=== PATIENT | female | born 1950 | race Caucasian/White ===

== ENCOUNTER → 2017-05-12 | Outpatient (CLI) | payer OTHER ==
--- NOTE | 2017-05-12 16:03 | XR ---
EXAMINATION TYPE: XR chest 2V DATE OF EXAM: 05/12/2017 COMPARISON: None HISTORY: 66-year-old female presurgical evaluation for cervical fusion, unspecified abdominal pain TECHNIQUE: Frontal and lateral views FINDINGS: The cardiomediastinal silhouette, aorta, and pulmonary vasculature are within normal limits. Strandy atelectasis mid and lower lungs. Otherwise, lungs and pleural spaces are clear. IMPRESSION: No acute cardiopulmonary process.
[2017-05-12 17:50] LABS: Appearance,Urine Clear (Clear); Bacteria,Urine Rare /hpf; Bilirubin,Urine Negative (Negative); Blood,Urine Negative (Negative); Color,Urine Yellow; Glucose,Urine (UA) Negative (Negative); Hyaline Casts,Urine 1 /lpf (0-2); Ketones,Urine Negative (Negative); Leukocyte Esterase,Urine Trace (Negative); Mucus,Urine Rare /hpf; Nitrite,Urine Negative (Negative); PH, Urine 6.5 (5.0-8.0); Protein,Urine Negative (Negative); RBC,Urine 1 /hpf (0-5); Specific Gravity,Urine 1.016 (1.001-1.035); Squamous Epithelial Cell,Urine <1 /hpf (0-4); Urobilinogen,Urine <2.0 mg/dL (<2.0); WBC,Urine 12 /hpf (0-5)
== END | disposition home or self-care (01) ==
LOC: LABPAT 15:08
PROVIDERS: ATTEND Orthopaedic Surgery Orthopaedic Surgery of the Spine
DX: Z01.818 Encounter for other preprocedural examination (principal); M48.02 Spinal stenosis, cervical region; Z01.812 Encounter for preprocedural laboratory examination
CPT/HCPCS: 71046; 81001

== ENCOUNTER → 2017-05-13 | Outpatient (CLI) | payer OTHER ==
[2017-05-13 13:55] LABS: Basophils # (A) 0.1 k/uL (0-0.2); Basophils % (A) 1 %; Eosinophils # (A) 0.1 k/uL (0-0.7); Eosinophils % (A) 1 %; HCT 43.6 % (34.0-46.0); HGB 13.8 gm/dL (11.4-16.0); Lymphocytes # (A) 2.5 k/uL (1.0-4.8); Lymphocytes % (A) 25 %; MCH 27.9 pg (25.0-35.0); MCHC 31.7 g/dL (31.0-37.0); MCV 87.9 fL (80.0-100.0); Mean Platelet Volume 8.6; Monocytes # (A) 0.5 k/uL (0-1.0); Monocytes % (A) 5 %; Neutrophils # (A) 6.6 k/uL (1.3-7.7); Neutrophils % (A) 65 %; Platelet Count 282 k/uL (150-450); RBC 4.96 m/uL (3.80-5.40); RDW 14.7 % (11.5-15.5); WBC 10.1 k/uL (3.8-10.6)
[2017-05-13 14:05] LABS: Anion Gap 12 mmol/L; Blood Urea Nitrogen 33 mg/dL (7-17); Calcium 10.4 mg/dL (8.4-10.2); Carbon Dioxide 29 mmol/L (22-30); Chloride 101 mmol/L (98-107); Glucose 98 mg/dL (74-99); Potassium 4.3 mmol/L (3.5-5.1); Sodium 142 mmol/L (137-145)
[2017-05-13 14:10] LABS: Partial Thromboplastin Time 22.3 sec (22.0-30.0); Prothrombin Time 9.5 sec (9.0-12.0)
== END | disposition home or self-care (01) ==
LOC: LABPAT 13:24
PROVIDERS: ATTEND Orthopaedic Surgery Orthopaedic Surgery of the Spine
DX: Z01.812 Encounter for preprocedural laboratory examination (principal); M48.02 Spinal stenosis, cervical region
CPT/HCPCS: 80048; 85025; 85610; 85730

== ENCOUNTER 2017-05-25 09:17 | Inpatient (IN) | payer OTHER ==
[2017-05-19 09:22] VITALS: BMI 32.2
[~2017-05-25 09:17] MED LIST: BACITRACIN 50,000 UNIT, POLYMYXIN B 500,000 UNIT in SODIUM CHLORIDE 0.9% IRRIGATIO 1,00... IRRIGATION ONE; DEXAMETHASONE SOD PHOSPHATE 10 MG/ML 1 ML VIAL IV ONE; LACTATED RINGERS 1,000 ML IV SCH; MIDAZOLAM 2 MG/2 ML VIAL IV PRN; ONDANSETRON 4 MG/2 ML VIAL IVP ONE; ceFAZolin IN SWFI 2 GM/20 ML SYRINGE IVP ONE
[2017-05-25] MEDS ORDERED: LIDOCAINE 1% 20 ML VIAL (10MG/ML) FOR IV START IV ONE (09:41)
[2017-05-25] MEDS ORDERED: LIDOCAINE 1% INJ 10MG/ML (20 ML MDV) ONE (10:56)
[2017-05-25] MEDS ORDERED: NEOSTIGMINE 1 MG/ML 10 ML VIAL ONE (10:56)
[2017-05-25] MEDS ORDERED: PROPOFOL 10 MG/ML 20 ML VIAL IV ONE (10:56)
[2017-05-25] MEDS ORDERED: MIDAZOLAM 2 MG/2 ML VIAL ONE (10:56)
[2017-05-25] MEDS ORDERED: SUCCINYLCHOLINE CHLORIDE 100 MG/5 ML SYR IV ONE (10:56)
[2017-05-25] MEDS ORDERED: ALBUTEROL INHALER 60 PUFF/8 GM INHALER INHALATION ONE (10:56)
[2017-05-25] MEDS ORDERED: DEXAMETHASONE SOD PHOS (MDV) 100 MG/10 ML VIAL ONE (10:56)
[2017-05-25] MEDS ORDERED: GLYCOPYRROLATE 0.2 MG/ML 2 ML VIAL ONE (10:56)
[2017-05-25] MEDS ORDERED: fentaNYL (PF) 50 MCG/ML 2 ML AMP ONE (10:56)
[2017-05-25] MEDS ORDERED: ROCURONIUM BROMIDE 10 MG/ML 10 ML VIAL IV ONE (10:56)
[2017-05-25] MEDS ORDERED: SODIUM CHLORIDE 0.9% 50 ML with ceFAZolin 2,000 MG IV ONE ×2 (11:07)
[2017-05-25] MEDS ORDERED: GELATIN SPONGE,ABSORB (LARGE) 1 EACH SPONGE MISCELLANE ONE (11:31)
[2017-05-25] MEDS ORDERED: LIDOCAINE 0.5% (PF) 5 MG/ML (50 ML SDV) SQ ONE (11:31)
[2017-05-25] MEDS ORDERED: THROMBIN (BOVINE) 5,000 UNIT VIAL MISCELLANE ONE (11:32)
[2017-05-25] MEDS ORDERED: LACTATED RINGERS 1,000 ML IV ONE (12:41)
[2017-05-25] MEDS ORDERED: MAGNESIUM HYDROXIDE 2,400 MG/10 ML CUP PO PRN (13:00)
[2017-05-25] MEDS ORDERED: ACETAMINOPHEN TAB 325 MG TAB PO PRN (13:00)
[2017-05-25] MEDS ORDERED: DIAZEPAM 5 MG TAB PO PRN (13:00)
[2017-05-25] MEDS ORDERED: BENZOCAINE/MENTHOL LOZENG 1 EACH LOZENGE MUCOUS MEM PRN (13:00)
[2017-05-25] MEDS ORDERED: ONDANSETRON 4 MG/2 ML VIAL IVP PRN (13:00)
[2017-05-25] MEDS ORDERED: ALBUTEROL NEBULIZED 2.5 MG/3 ML INHALATION PRN (13:02)
[2017-05-25] MEDS ORDERED: ACETAMINOPHEN TAB 500 MG TAB PO PRN (13:02)
--- NOTE | 2017-05-25 13:09 | P.OP ---
Date of Procedure: 05/25/17 Preoperative Diagnosis: Cervical stenosis C4 5 C5 6 C6 7 Herniated nucleus pulposis C4 5 C5 6 C6 7 Degenerative disc disease Upper extremity radiculopathy Neck pain Postoperative Diagnosis: Same Anesthesia: GETA Pathology: none sent Condition: stable Disposition: PACU Description of Procedure: BRIEF OPERATIVE NOTE Preoperative Diagnosis: Cervical stenosis C4 5 C5 6 C6 7, herniated nucleus pulposis C4 5 C5 6 C6 7, degenerative disc disease, neck pain with upper extremity radiculopathy Postoperative Diagnosis: Same Procedure: Anterior cervical decompression with discectomy and fusion C4 5 C5 6 C6 7 Placement of interbody graft C4 5 C5 6 C6 7 Application of anterior cervical plate C4 5 6 7 Surgeon: Dr. Montana Cable Splicer Helper: Trenton CALDWELL who is present throughout the entire the case persistence during positioning, dissection, exposure, visualization, and all crucial elements of the case as well as closure. Anesthesia: General anesthesia per Dr. Wagner Estimated blood loss: Approximately 75 mL Complications: None apparent Components implanted: K2 mL [place] anterior cervical plate system with 8 screws and Vikos interbody allograft bone graft Disposition: To recovery room in good stable condition. OPERATIVE INDICATIONS The patient has had long-standing issues in their neck and upper extremities. She is found have severe stenosis at her cervical spine with disc herniations at C4 5 C5 6 and C6 7. Her imaging correlated well with her neck and upper extremity symptoms. The patient has been through conservative treatment. She is not having any prolonged benefit despite aggressive conservative treatment and is having worsening of her symptoms. We discussed various treatment options including surgery, and the patient wishes to proceed with surgery We discussed the risk, patient's alternatives and benefits of surgery including but not limited to, risk of bleeding risk of infection, risk of need for further surgery, risk of decreased, loss of motion, muscle function, malunion nonunion, hardware failure, nerve damage, paralysis, heart attack, and . OPERATIVE SUMMARY After discussing all the risks, patient alternatives and benefits at length, the patient elected to proceed with surgical intervention, signed informed consent, and presented for their procedure. The patient was seen and examined in the preoperative holding area and the surgical site was marked. The patient was given antibiotics and brought to the operating room. The patient was positioned on the operating room table in a supine position being careful to pad any bony prominences and pressure points. The patient was sedated and intubated by anesthesia in standard fashion. Once the airway and C- spine were stabilized the patient's arms were padded and tucked at her side, with her shoulders gently taped. The head was placed in a donut pad with the neck in good neutral alignment and position. We were careful to maintain the patient's cervical spine and good neutral alignment and position throughout. The patient was prepped and draped in a normal standard fashion. An appropriate timeout and keystone protocol performed. We were able to proceed with the surgery. The local wound area was infiltrated with local anesthetic. An incision was made transversely approximately 2-1/2 cm over the appropriate levels at C 56. Dissection was taken down subcutaneously to the level of the platysma which was split in line with its fibers. Dissection was taken with a carotid approach, with the trachea and esophagus medial and the carotid sheath laterally. We dissected down to the anterior surface of the vertebral bodies at C4 5 C5 6 and C6 7. Large osteophytes were noted at C45 and C5 6 Intraoperative x-ray was taken which showed a marker at the appropriate level at C4 5. With the appropriate level positively confirmed, we were able to proceed with discectomy at the appropriate levels. All of the operative levels were exposed appropriately. We started C4 5 and then worked to C5 6 and then C6 7. The patient had all their twitches back, and there was no evidence of recurrent laryngeal issue. The wound was copiously irrigated and suctioned dry as had been done periodically throughout the case. At the appropriate level/ levels, I established an annulotomy with an 11 blade scalpel. A discectomy was performed with a combination of pituitary rongeurs, curettes, a high-speed bur, and Kerrison rongeurs. Note was made of significant posterior osteophytes and significant herniation particular at C4 5 and C5 6 and moderately at C6 7. These were remedied with the decompression. The posterior longitudinal ligament was taken down as were any posterior osteophytes. This gave good central and bilateral foraminal decompression. There is no evidence of any dural tear or leak. The endplates were prepared with a high-speed bur. With the endplates in good parallel position, I was able to size for the appropriate size interbody graft. The wound was irrigated and suctioned dry the graft was prepared and malleted into position. It had good alignment and position with the anterior surface flush with the anterior surface of the vertebral bodies. This was done similarly the appropriate levels starting at C4 5 and then at C5 6 and then at C6 7. With the grafts intact, I was able to measure and contour and appropriate sized plate. The plate was positioned at the midline over the appropriate levels from C4 to 7. Screw holes were established with a hand drill and drill guide. Screws were placed in good alignment and position with excellent bony purchase. They were seated under the locking device. The construct was checked and found to be stable. Intraoperative x-ray was taken which showed good alignment and position of the implants at the appropriate levels. There was no evidence of any dural tear or leak. Good hemostasis was maintained. The wound was copiously irrigated and suctioned dry as had been done periodically throughout the case. The platysma was closed with absorbable suture. The subcutaneous tissue was closed. The subcuticular tissue was closed with absorbable suture. The wound was cleaned and dried and dressed appropriately. A soft cervical collar was placed appropriately. The patient was woken up by anesthesia, extubated, transferred back gently to their hospital bed and brought to the recovery room in good stable condition. The patient will be admitted to the hospital for appropriate postoperative care , medical management and monitoring. We will continue to follow them closely about the postoperative course.
[2017-05-25] MEDS: HYDROmorphone 0.5 MG/0.5 ML SYRINGE IVP PRN ×4 (13:27→13:57)
--- NOTE | 2017-05-25 13:52 | XR ---
EXAMINATION TYPE: XR cervical spine 1V DATE OF EXAM: 05/25/2017 COMPARISON: NONE HISTORY: 66 year-old female needle placement. TECHNIQUE: Portable crosstable lateral intraoperative view FINDINGS: Surgical instrument and needle project anteriorly at the C4-C5 disc interspace. There is grade 1 ante rolisthesis noted here. Patient is intubated. IMPRESSION: Intraoperative assessment with needle anteriorly at C4-C5.
--- NOTE | 2017-05-25 15:12 | XR ---
EXAMINATION TYPE: XR cervical spine 1V DATE OF EXAM: 05/25/2017 COMPARISON: Earlier today HISTORY: 66-year-old female intraoperative assessment of hardware placement TECHNIQUE: Portable intraoperative crosstable lateral view FINDINGS: Patient is intubated. ACDF hardware placed from C4 through C7 levels. IMPRESSION: Placement of C4-C7 ACDF.
[2017-05-25] MEDS: ceFAZolin IN SWFI 2 GM/20 ML SYRINGE IVP SCH ×2 (17:41→23:21)
[2017-05-25] MEDS: SODIUM CHLORIDE 0.9% 1,000 ML IV SCH (17:41)
[2017-05-25] MEDS: HYDROmorphone 2 MG/ML 1 ML SYRINGE IVP PRN ×2 (17:48→23:04)
[2017-05-25] MEDS: traMADol 50 MG TAB PO PRN (20:21)
[2017-05-25] MEDS ORDERED: MONTELUKAST 10 MG TAB PO SCH (21:00)
[2017-05-25] MEDS ORDERED: [UNRECOGNIZED DRUG - OTHER] EA NOSTRIL SCH (21:00)
[2017-05-25] MEDS ORDERED: AEROSPAN INHALATION SCH (22:49)
[2017-05-26 03:33] VITALS: BP 114/63; PULSE 75; RESP 17; TEMP 97.8
[2017-05-26] MEDS: SODIUM CHLORIDE 0.9% 1,000 ML IV SCH (04:57)
[2017-05-26] MEDS: traMADol 50 MG TAB PO PRN (05:57)
[2017-05-26] MEDS ORDERED: PANTOPRAZOLE 40 MG TABLET PO SCH (07:30)
--- NOTE | 2017-05-26 08:09 | P.DS ---
Providers Date of admission: 05/25/17 09:17 Attending physician: Ramone Montana [facility] Course: The patient presented on the day of admission as per her operative note. She feels her arms have made good progress but she is having some pain at her throat and at the base of her neck posteriorly. This being controlled with oral medications. Physical Exam The incision site is clean dry and intact. There is no erythema no drainage. There is no purulence no evidence of infection.Her neck is soft and supple. There is no drainage or sooner and swelling. Abdomen soft and nontender. Chest has good excursion with deep inspiration and expiration. The patient has active and passive range of motion intact at the upper and lower extremities. There is no acute change in neurologic status.she has good strength in bilateral upper extremities. Hospital Course postoperative day 1 status post anterior cervical discectomy and fusion at C4 5 C5 6 C6 7 for herniated nucleus pulposis and stenosis with upper extremity radiculopathy. The patient has been making good progress postoperatively. She is having good improvement in her upper extremity symptoms but is having some pain around the surgical site which is to be expected.They have completed the prophylactic antibiotics without any signs or symptoms of infection. The patient has been able to advance their diet, and is tolerating diet adequately. The pain was initially controlled with IV medications and is now controlled appropriately with oral medications. The patient has been able to increase their mobilization. The patient has progressed appropriatelyand I think her pain will improve over the next several days around the surgical site. she has some ALLERGIES with medications but has been able take Ultram and may do well with Valium as well and we'll send her home with these. I think they are in good stable condition for discharge today. They will be sent home with appropriate prescriptions. I answered their questions to the best of my ability in a language that they can understand and they are agreeable with the plan. They will follow up as directed in approximately 2 weeks or sooner if any problems. Patient Condition at Discharge: Good Plan - Discharge Summary Discharge Rx Participant: No New Discharge Prescriptions: New Diazepam [Valium] 5 mg PO TID PRN #90 tab PRN Reason: Spasms traMADol HCL [Ultram] 50 mg PO Q6HR PRN #90 tab PRN Reason: Pain No Action Loratadine [Claritin] 10 mg PO DAILY amLODIPine BESYLATE [Norvasc] 10 mg PO DAILY Triamterene/Hydrochlorothiazid [Triamterene-Hctz 37.5-25 mg Tb] 1 tab PO DAILY Omeprazole [PriLOSEC] 40 mg PO AC-BRKFST Albuterol Sulfate [Proair Hfa] 2 puff INHALATION RT-Q6H PRN PRN Reason: asthma Cholecalciferol [Vitamin D3] 1,000 unit PO DAILY Pravastatin Sodium [Pravachol] 40 mg PO DAILY Montelukast [Singulair] 10 mg PO HS Acetaminophen Tab [Tylenol Tab] 1,000 mg PO Q6HR PRN PRN Reason: Pain Fluticasone Nasal [place] [Flonase Nasal [place]] 2 spr EA NOSTRIL BID Vitafusion Complete 1 tab PO DAILY Niacin 500 mg PO DAILY Ibuprofen 400 mg PO Q4H PRN PRN Reason: Pain Fish Oil/Dha/Epa [Fish Oil 1,200 mg Fish Oil] 1 cap PO DAILY Biotin 10,000 mcg PO DAILY Aerostan Nasal [place] 2 spray EA NOSTRIL BID Discharge Medication List Albuterol Sulfate [Proair Hfa] 2 puff INHALATION RT-Q6H PRN 09/21/13 [History] Loratadine [Claritin] 10 mg PO DAILY 09/21/13 [History] Omeprazole [PriLOSEC] 40 mg PO AC-BRKFST 09/21/13 [History] Triamterene/Hydrochlorothiazid [Triamterene-Hctz 37.5-25 mg Tb] 1 tab PO DAILY 09/21/13 [History] amLODIPine BESYLATE [Norvasc] 10 mg PO DAILY 09/21/13 [History] Acetaminophen Tab [Tylenol Tab] 1,000 mg PO Q6HR PRN 05/19/17 [History] Aerostan Nasal [place] 2 spray EA NOSTRIL BID 05/19/17 [History] Biotin 10,000 mcg PO DAILY 05/19/17 [History] Cholecalciferol [Vitamin D3] 1,000 unit PO DAILY 05/19/17 [History] Fish Oil/Dha/Epa [Fish Oil 1,200 mg Fish Oil] 1 cap PO DAILY 05/19/17 [History] Fluticasone Nasal [place] [Flonase Nasal [place]] 2 spr EA NOSTRIL BID 05/19/17 [ History] Ibuprofen 400 mg PO Q4H PRN 05/19/17 [History] Montelukast [Singulair] 10 mg PO HS 05/19/17 [History] Niacin 500 mg PO DAILY 05/19/17 [History] Pravastatin Sodium [Pravachol] 40 mg PO DAILY 05/19/17 [History] Vitafusion Complete 1 tab PO DAILY 05/19/17 [History] Diazepam [Valium] 5 mg PO TID PRN #90 tab 05/26/17 [Rx] traMADol HCL [Ultram] 50 mg PO Q6HR PRN #90 tab 05/26/17 [Rx] Follow up Appointment(s)/Referral(s): Ramone Montana DO [Doctor of Osteopathic Medicine] - 2 Weeks Activity/Diet/Wound Care/Special Instructions: Keep site clean. May shower with waterproof Tegaderm intact. Do not soak in a tub. After Tuesday May remove dressing and then may shower with area uncovered, But leave Steri-Strips intact and allow them to fray off on their own. May use soft cervical collar for comfort. May remove for several hours at a time for comfort and while in bed for comfort if she wishes Avoid heavy or rigorous activity. No lifting greater than 20 pounds. No overhead activities. No repetitive bending stooping or twisting.
[2017-05-26] MEDS ORDERED: amLODIPine 10 MG TAB PO SCH (09:00)
[2017-05-26] MEDS ORDERED: PRAVASTATIN SODIUM 40 MG TAB PO SCH (09:00)
[2017-05-26] MEDS ORDERED: SENNOSIDES-DOCUSATE SODIUM 1 EACH TAB PO SCH (09:00)
[2017-05-26] MEDS ORDERED: LORATADINE 10 MG TAB PO SCH (09:00)
[2017-05-26] MEDS ORDERED: NIACIN TR 250 MG CAPSULE.ER PO SCH (09:00)
[2017-05-26] MEDS ORDERED: NON-FORMULARY DRUG (Fish Oil/Dha/Epa [Fish Oil 1,200 Mg Fish Oil] 1 EACH) PO SCH (09:00)
[2017-05-26] MEDS ORDERED: CHOLECALCIFEROL 1,000 UNIT TAB PO SCH (09:00)
[2017-05-26] MEDS ORDERED: NIACIN TR 500 MG CAPSULE.ER PO SCH (09:00)
[2017-05-26] MEDS ORDERED: TRIAMTERENE-HCTZ 37.5-25MG 1 EACH TAB PO SCH (09:00)
[2017-05-26] MEDS ORDERED: NON-FORMULARY DRUG (Biotin [Biotin] 10,000 MCG) PO SCH (09:00)
== END 2017-05-26 09:45 | disposition home or self-care (01) | DRG 473 ==
LOC: 2ORMAIN 09:17 → 3SUR 14:49
PROVIDERS: ADMIT Orthopaedic Surgery Orthopaedic Surgery of the Spine; ATTEND Orthopaedic Surgery Orthopaedic Surgery of the Spine
PROC: 0RG20A0 Fusion of 2 or more Cervical Vertebral Joints with Interbody Fusion Device, Anterior Approach, Anterior Column, Open Approach (ICD-10-PCS; principal; 2017-05-25 11:15)
PROC: 0RT30ZZ Resection of Cervical Vertebral Disc, Open Approach (ICD-10-PCS; principal; 2017-05-25 11:15)
DX: M50.121 Cervical disc disorder at C4-C5 level with radiculopathy (principal); M48.02 Spinal stenosis, cervical region; M43.12 Spondylolisthesis, cervical region; K21.9 Gastro-esophageal reflux disease without esophagitis; J45.909 Unspecified asthma, uncomplicated; I10 Essential (primary) hypertension; Z79.899 Other long term (current) drug therapy; Z88.1 Allergy status to other antibiotic agents; Z88.5 Allergy status to narcotic agent; Z88.0 Allergy status to penicillin; Z82.49 Family history of ischemic heart disease and other diseases of the circulatory system; Z79.1 Long term (current) use of non-steroidal anti-inflammatories (NSAID); Z79.51 Long term (current) use of inhaled steroids
CPT/HCPCS: 36415; 72020; 86850; 86900; 86901

== ENCOUNTER → 2018-12-27 | Outpatient (CLI) | payer MEDICARE, OTHER ==
[2018-12-27 08:29] LABS: African American GFR (CKD) >90 (>60 ml/min/1.73 sqM); Anion Gap 7 mmol/L; Blood Urea Nitrogen 24 mg/dL (7-17); Carbon Dioxide 31 mmol/L (22-30); Chloride 104 mmol/L (98-107); Glucose 98 mg/dL (74-99); Potassium 4.5 mmol/L (3.5-5.1); Sodium 142 mmol/L (137-145)
--- NOTE | 2018-12-27 18:35 | CT ---
EXAMINATION TYPE: CT urogram wo/w con DATE OF EXAM: 12/27/2018 COMPARISON: None HISTORY: Flank pain, microhematuria CT DLP: 2592 mGycm Automated exposure control for dose reduction was used. CONTRAST: Performed without and with IV Contrast, patient injected with 100 ml mL of Isovue 300. 3-D reconstruc tion images performed by the technologist are reviewed. FINDINGS: Multiple peripelvic cysts are present on the bilateral kidneys. No hydronephrosis is evident. No hydr oureter is evident. Ureters follow a normal caliber course and contour to the urinary bladder. No filling defects within the renal collecting system and renal pelves or ureters are identified. There is a fat-containing 1.3 cm area at the inferior pole left kidney measuring -91 Hounsfield units . No discrete masses are evident within the kidneys otherwise. Liver spleen adrenal glands pancreas and gallbladder appear unremarkable. Vascular calcifications wit hin the aorta. Inferior vena cava is unremarkable. Uterus is unremarkable. No free fluid is within th e pelvis. There is deemed hardening artifact from right hip prosthesis. IMPRESSION: 1. BILATERAL RENAL PERIPELVIC CYSTS WITHOUT EVIDENCE OF HYDRONEPHROSIS. 2. NO SUSPICIOUS CHANGES TO ACCOUNT FOR HEMATURIA OR FLANK PAIN.
== END | disposition home or self-care (01) ==
LOC: RADCTMAIN 07:41
PROVIDERS: ATTEND Urology
DX: N94.89 Other specified conditions associated with female genital organs and menstrual cycle (principal); Z88.0 Allergy status to penicillin; Z88.5 Allergy status to narcotic agent; Z88.1 Allergy status to other antibiotic agents; Z87.448 Personal history of other diseases of urinary system; R10.9 Unspecified abdominal pain
CPT/HCPCS: 80048; 74178; 36415; 74400; Q9967

== ENCOUNTER → 2024-03-12 | Outpatient (CLI) | payer MEDICARE, OTHER ==
--- NOTE | 2024-03-14 09:56 | MM ---
Reason for Exam: Screening (asymptomatic). Last mammogram was performed 13 year(s) and 1 month(s) ago. Patient History: Menarche at age 15. First Full-Term at age 19. Postmenopausal. Patient used Estrogen for 3 years. Risk Values: Rosi 5 year model risk: 1.3%. NCI Lifetime model risk: 3.5%. Prior Study Comparison: 11/26/2002 Left Special View Mammogram, [facility]. 06/05/2004 Bilateral Diagnostic Mammogram, [facility]. 02/08/2011 Bilateral Diagnostic Mammogram, [facility]. Tissue Density: The breasts are heterogeneously dense, which may obscure small masses. Findings: Analyzed By CAD. There is no suspicious group of microcalcifications or new suspicious mass in either breast. Overall Assessment: Benign, BI-RAD 2 Management: Screening Mammogram of both breasts in 1 year. . Patient should continue monthly self-breast exams. A clinical breast exam by your physician is recommended on an annual basis. This exam should not preclude additional follow-up of suspicious palpable abnormalities. Note on Rosi scores and lifetime risk: 1. A Rosi score greater than 3% is considered moderate risk. If this is the case, consider specialist referral to assess eligibility for a risk reducing agent. 2. If overall lifetime risk for the development of breast cancer is 20% or higher, the patient may qualify for future screening with alternating mammogram and breast MRI. [facility], , 03/14/2024 9:53 AM. Electronically signed and approved by: Selvin Ocasio M.D. Radiologis
== END | disposition home or self-care (01) ==
LOC: RADMAMWWP 12:13
PROVIDERS: ATTEND Internal Medicine
DX: Z12.31 Encounter for screening mammogram for malignant neoplasm of breast (principal); R92.333 Mammographic heterogeneous density, bilateral breasts; Z78.0 Asymptomatic menopausal state
CPT/HCPCS: 77063; 77067